=== PATIENT | male | born 1950 | race Caucasian/White ===

== ENCOUNTER 2019-12-10 14:27 | Emergency (ER) | payer MEDICARE, OTHER ==
[2019-12-10 15:00] LABS: EOSINOPHILS % (AUTO) 4.5 % (0.0-8.0); HEMATOCRIT 41.4 % (42-54); LYMPHOCYTES % (AUTO) 31.7 % (21.0-51.0); MEAN CORPUSCULAR HEMOGLOBIN 29.4 pg (27.0-33.0); MEAN CORPUSCULAR HGB CONC 33.3 g/dL (32.0-36.0); MEAN CORPUSCULAR VOLUME 88.3 fL (79-99); MONOCYTES % (AUTO) 6.5 % (3.0-13.0); NEUTROPHILS % (AUTO) 56.2 % (40.0-77.0); PLATELET COUNT (AUTO) 235 K/uL (130-400); RED BLOOD CELL COUNT(AUTO) 4.69 MIL/uL (4.50-6.20); RED CELL DISTRIBUTION WIDTH 14.5 % (11.0-15.5); WHITE BLOOD COUNT (AUTO) 6.9 K/uL (4.8-10.8)
[2019-12-10 15:17] LABS: INR 1.07 (0.85-1.15); PARTIAL THROMBOPLASTIN TIME 29.2 SEC (26.3-35.5); PROTHROMBIN TIME 11.5 SEC (9.6-11.6)
[2019-12-10 15:18] LABS: CREATININE 1.3 mg/dL (0.5-1.5); POTASSIUM 4.2 mmol/L (3.5-5.1)
[2019-12-10 15:22] LABS: ALBUMIN 3.6 g/dL (3.5-5.0); BILIRUBIN,DIRECT 0.1 mg/dL (0.0-0.3); BILIRUBIN,TOTAL 0.5 mg/dL (0.2-1.0); TOTAL PROTEIN, SERUM 8.3 g/dL (6.0-8.3)
[2019-12-10] MEDS ORDERED: ONDANSETRON HCL 4 MG/2 ML VIAL ONE (15:40)
[2019-12-10] MEDS ORDERED: FENTANYL CITRATE PF 50 MCG/1 ML 2ML VIAL ONE (15:41)
[2019-12-10] MEDS ORDERED: FAMOTIDINE/PF 20 MG/2 ML VIAL IV ONE (15:41)
[2019-12-10 18:30] LABS: APPEARANCE,URINE SL CLOUDY (CLEAR); BILIRUBIN,URINE NEGATIVE (NEGATIVE); COLOR,URINE YELLOW (YELLOW); GLUCOSE, URINE (UA) NEGATIVE (NEGATIVE); KETONES,URINE NEGATIVE (NEGATIVE); LEUKOCYTE ESTERASE ,URINE NEGATIVE (NEGATIVE); NITRATE,URINE NEGATIVE (NEGATIVE); OCCULT BLOOD,URINE LARGE (NEGATIVE); PH,URINE 5.5 (5.0-8.0); PROTEIN,URINE 30 mg/dL (NEGATIVE); UROBILINOGEN,URINE 0.2 mg/dL (0.2-1.0)
[2019-12-10 18:52] LABS: BACTERIA,URINE Few /HPF (None Seen); MUCUS,URINE Moderate LPF (None Seen); RBC,URINE 26-50 /HPF (0-1); SQUAMOUS EPITHELIAL CELL,UR 0-2 /HPF (0-2)
== END 2019-12-10 20:00 | disposition home or self-care (01) ==
LOC: EDH 14:27
DX: N20.1 Calculus of ureter (principal); N13.4 Hydroureter; I10 Essential (primary) hypertension; Z72.0 Tobacco use
CPT/HCPCS: 36415; 74176; 76700; 80048; 80076; 81001; 82550; 83690; 84443; 84484; 85025; 85610; 85730; 93005; 96374; 96375; 99285; J2405; J3010; J3490

== ENCOUNTER 2020-12-19 14:54 | Observation (INO) | payer MEDICARE ==
[~2020-12-19] VITALS: Ht 177.8 cm; Wt 84.3 kg
[2020-12-19 15:20] LABS: BASOPHILS % (AUTO) 0.8 % (0.0-5.0); EOSINOPHILS % (AUTO) 1.7 % (0.0-8.0); HEMATOCRIT 42.9 % (42-54); LYMPHOCYTES % (AUTO) 9.8 % (21.0-51.0); MEAN CORPUSCULAR HEMOGLOBIN 29.6 pg (27.0-33.0); MEAN CORPUSCULAR HGB CONC 33.1 g/dL (32.0-36.0); MEAN CORPUSCULAR VOLUME 89.6 fL (79-99); MONOCYTES % (AUTO) 3.8 % (3.0-13.0); NEUTROPHILS % (AUTO) 83.6 % (40.0-77.0); PLATELET COUNT (AUTO) 216 K/uL (130-400); RED BLOOD CELL COUNT(AUTO) 4.79 MIL/uL (4.50-6.20); RED CELL DISTRIBUTION WIDTH 14.2 % (11.0-15.5); WHITE BLOOD COUNT (AUTO) 11.6 K/uL (4.8-10.8)
[2020-12-19 15:30] LABS: CREATININE 1.6 mg/dL (0.5-1.5); POTASSIUM 4.6 mmol/L (3.5-5.1)
[2020-12-19 15:38] LABS: ALBUMIN 3.8 g/dL (3.5-5.0); BILIRUBIN,TOTAL 0.4 mg/dL (0.2-1.0); TOTAL PROTEIN, SERUM 8.4 g/dL (6.0-8.3)
[2020-12-19] MEDS ORDERED: GUAIFENESIN-DM 200/20 MG 10 ML PO PRN (17:45)
[2020-12-19] MEDS ORDERED: ONDANSETRON 4MG INJ IV PRN (17:45)
[2020-12-19] MEDS: PREDNISONE 20 MG TABLET PO SCH (17:45)
[2020-12-19] MEDS ORDERED: LACTULOSE 20 GM/30 ML UDCUP PO PRN (17:45)
[2020-12-19] MEDS: 0.9%NACL 1000ML 1,000 ML IV SCH ×2 (17:45→23:00)
[2020-12-19] MEDS ORDERED: ACETAMINOPHEN 325 MG TAB PO PRN ×2 (17:45)
[2020-12-19] MEDS ORDERED: NITROGLYCERIN 0.4 MG SL TAB SL PRN (17:45)
[2020-12-19] MEDS: DOXYCYCLINE 100MG+NS 250ML 250 ML IV SCH (18:00)
[2020-12-19 18:20] LABS: HEMOGLOBIN A1C 5.6 % (4.0-6.0)
[2020-12-19 18:38] LABS: ABG BASE EXCESS -3.1 mmol/L (-2.0-3.0); ABG HCO3 20.8 mmol/L (21.0-28.0); ABG OXYGEN SATURATION 94.5 % (95.0-99.0); ABG PCO2 34 mmHg (35-48)
[2020-12-19 18:40] LABS: CREATINE KINASE, TOTAL 53 U/L (21-232); MYOGLOBIN 78 ng/mL (10-92); THYROID STIMULATING HORMONE 1.99 uIU/mL (0.36-3.74); TROPONIN I < 0.04 ng/mL (0.00-0.06)
[2020-12-19] MEDS: IPRATROPIUM/ALBUTEROL SULFATE 3 ML SOLUTION IH SCH (19:37)
[2020-12-19] MEDS: BUDESONIDE 0.5 MG/2 ML INH IH SCH (19:47)
[2020-12-19] MEDS ORDERED: DOXYCYCLINE 100MG+NS 250ML 250 ML IV ONE (21:34)
[2020-12-19 22:14] VITALS: BP 136/76
[2020-12-20] VITALS (7 sets, daily range): BP systolic 97–119; BP diastolic 49–68
[2020-12-20] MEDS: IPRATROPIUM/ALBUTEROL SULFATE 3 ML SOLUTION IH SCH ×5 (01:10→23:59)
[2020-12-20 01:54] LABS: BASOPHILS % (AUTO) 1.3 % (0.0-5.0); EOSINOPHILS % (AUTO) 3.8 % (0.0-8.0); HEMATOCRIT 37.9 % (42-54); MEAN CORPUSCULAR HGB CONC 32.7 g/dL (32.0-36.0); MEAN CORPUSCULAR VOLUME 88.8 fL (79-99); MONOCYTES % (AUTO) 8.9 % (3.0-13.0); NEUTROPHILS % (AUTO) 50.8 % (40.0-77.0); PLATELET COUNT (AUTO) 191 K/uL (130-400); RED BLOOD CELL COUNT(AUTO) 4.27 MIL/uL (4.50-6.20); RED CELL DISTRIBUTION WIDTH 14.1 % (11.0-15.5); WHITE BLOOD COUNT (AUTO) 6.4 K/uL (4.8-10.8)
[2020-12-20 03:07] LABS: CREATINE KINASE, TOTAL 65 U/L (21-232); MYOGLOBIN 78 ng/mL (10-92); TROPONIN I < 0.04 ng/mL (0.00-0.06)
[2020-12-20] MEDS: DOXYCYCLINE 100MG+NS 250ML 250 ML IV SCH ×2 (05:04→18:10)
[2020-12-20] MEDS: BUDESONIDE 0.5 MG/2 ML INH IH SCH ×2 (06:16→18:56)
[2020-12-20 09:50] LABS: CREATINE KINASE, TOTAL 67 U/L (21-232); MYOGLOBIN 77 ng/mL (10-92); TROPONIN I < 0.04 ng/mL (0.00-0.06)
[2020-12-20] MEDS: ENOXAPARIN SODIUM 40 MG/0.4 ML SYRINGE SQ SCH (10:26)
[2020-12-20] MEDS: FAMOTIDINE 20MG VIAL IV SCH (10:26)
[2020-12-20] MEDS: CLOPIDOGREL 75MG TAB PO SCH (10:27)
[2020-12-20] MEDS: PREDNISONE 20 MG TABLET PO SCH (10:27)
[2020-12-21 03:36] VITALS: BP 108/56
[2020-12-21] MEDS: IPRATROPIUM/ALBUTEROL SULFATE 3 ML SOLUTION IH SCH ×2 (05:12→11:02)
[2020-12-21] MEDS: BUDESONIDE 0.5 MG/2 ML INH IH SCH (05:24)
[2020-12-21 06:55] LABS: BASOPHILS % (AUTO) 0.1 % (0.0-5.0); HEMATOCRIT 34.9 % (42-54); LYMPHOCYTES % (AUTO) 10.5 % (21.0-51.0); MEAN CORPUSCULAR HEMOGLOBIN 28.7 pg (27.0-33.0); MEAN CORPUSCULAR HGB CONC 32.1 g/dL (32.0-36.0); MEAN CORPUSCULAR VOLUME 89.5 fL (79-99); MONOCYTES % (AUTO) 4.6 % (3.0-13.0); NEUTROPHILS % (AUTO) 84.4 % (40.0-77.0); PLATELET COUNT (AUTO) 173 K/uL (130-400); RED CELL DISTRIBUTION WIDTH 14.6 % (11.0-15.5); WHITE BLOOD COUNT (AUTO) 7.3 K/uL (4.8-10.8)
[2020-12-21 06:57] LABS: CREATININE 1.4 mg/dL (0.5-1.5); POTASSIUM 3.7 mmol/L (3.5-5.1)
[2020-12-21 08:00] VITALS: BP 113/63
[2020-12-21] MEDS: FAMOTIDINE 20MG VIAL IV SCH (08:55)
[2020-12-21] MEDS: PREDNISONE 20 MG TABLET PO SCH (08:55)
[2020-12-21] MEDS: DOXYCYCLINE 100MG+NS 250ML 250 ML IV SCH (08:55)
[2020-12-21] MEDS: CLOPIDOGREL 75MG TAB PO SCH (08:55)
[2020-12-21] MEDS: ENOXAPARIN SODIUM 40 MG/0.4 ML SYRINGE SQ SCH (08:56)
[2020-12-21 12:00] VITALS: BP 105/55
[2020-12-21] MEDS ORDERED: PRED20B PO (13:07)
[2020-12-21] MEDS ORDERED: CLOP75TA14 PO (13:07)
[2020-12-21] MEDS ORDERED: DOXY100C5 PO (13:07)
== END 2020-12-21 17:30 | disposition home or self-care (01) ==
LOC: EDH 14:54 → EDHIP 17:41 → 3CH 21:28
PROVIDERS: ADMIT Internal Medicine; ATTEND Internal Medicine
DX: R55 Syncope and collapse (principal); R00.1 Bradycardia, unspecified; I95.9 Hypotension, unspecified; J44.1 Chronic obstructive pulmonary disease with (acute) exacerbation; I10 Essential (primary) hypertension; E78.5 Hyperlipidemia, unspecified; I25.10 Atherosclerotic heart disease of native coronary artery without angina pectoris; I25.2 Old myocardial infarction; F17.200 Nicotine dependence, unspecified, uncomplicated; Z95.5 Presence of coronary angioplasty implant and graft; Z79.899 Other long term (current) drug therapy
CPT/HCPCS: 36415 ×3; 36600; 71045; 80048; 80053; 82550 ×4; 82803; 83036; 83735; 83874 ×3; 83880; 84145; 84443; 84484 ×4; 85025 ×3; 93005 ×4; 94640 ×11; 94664; 96361 ×2; 96365; 96366 ×2; 96372 ×2; 96375; 96376; 97039 ×2; 97116; 97161; 99285; G0378 ×44; G8978; G8980 ×2; G8981; G8983 ×2; J1650 ×2; J3490 ×5